=== PATIENT | female | born 2000 | race Caucasian/White ===

== ENCOUNTER 2021-05-29 09:13 | Emergency (ER) | payer OTHER, SELFPAY ==
--- NOTE | ~2021-05-29 | XR_ITS ---
EXAMINATION: XR CHEST CLINICAL INFORMATION: Cough and congestion COMPARISON: Previous chest x-ray August 2018 TECHNIQUE: 2 views of the chest were obtained. FINDINGS: No significant abnormality is noted involving the heart, lungs, mediastinum, bony thorax or soft tissues. XR/XR chest 2V IMPRESSION: Unremarkable examination.
[2021-05-29 10:10] VITALS: BP 112/65; PULSE 68; RESP 18; TEMP 37.1; O2SAT 96; BMI 31.4
--- NOTE | 2021-05-29 11:46 | ED_ITS ---
HPI - URI/Sore Throat General Chief Complaint: Upper Respiratory Symptoms Stated Complaint: severe chest pain, cough Time Seen by Provider: 05/29/21 11:14 Source: patient Mode of arrival: ambulatory History of Present Illness HPI Narrative: 20-year-old female with past medical history of asthma presenting to the ED complaining of productive cough, nasal congestion, chest discomfort when coughing times about a week and a half. Admits seen at urgent care in [facility] prescribed coughing suppressants without relief. denies fever, chills, ear pain, SOB admits tested negative for strep and COVID-19 MD elicited complaint: cough and nasal congestion Related Data Previous Rx's Medication Instructions Recorded azithromycin See Rx Instructions .ROUTE 05/29/21 .COMPLEX #6 tab benzonatate [Tessalon Perles] 100 mg PO TID PRN #14 cap 05/29/21 fluticasone propionate [Flonase 2 spray INTRANASAL DAILY #16 g 05/29/21 Allergy Relief] Allergies Allergy/AdvReac Type Severity Reaction Status Date / Time No Known Allergies Allergy Verified 05/29/21 10:13 [No Known Allergies*] Review of Systems Review of Systems: Constitutional: No Fever, No Chills ENT/Mouth: No Ear Pain, + Nasal Congestion, No Sinus Pain, No Hoarseness, No sore throat, + Rhinorrhea, No Swallowing Difficulty Cardiovascular: + Chest Pain when coughing, No SOB Respiratory: + Cough, No Sputum, + Wheezing Gastrointestinal: No Nausea, No Vomiting, No Abdominal pain Musculoskeletal: No joint pain, No Myalgias Skin: No Skin Lesions, No rash Yes all other systems are reviewed and are negative [facility] Past Medical History Attestation statement: The following information was validated with the patient. Medical History (Updated 05/29/21 @ 11:47 by RONI Lopez) No known health problems Social History Social History Advance Directives: No Advance Directives Information Provided: No Patient : No Physical Exam Vital Signs: Vital Signs: Last Vital Signs Temp 98.8 F 05/29/21 10:10 Pulse 68 05/29/21 10:10 Resp 18 05/29/21 10:10 BP 112/65 05/29/21 10:10 Pulse Ox 96 05/29/21 10:10 Body Mass Index 31.4 Const: General: cooperative, healthy appearing and no acute distress Orientation/consciousness: patient oriented x3 Limitations: no limitations HENMT: Head: Yes normal to inspection Ears: hearing grossly normal bilaterally General nose exam: Normal external nose present Face and sinus: Yes normal facial exam Eyes: General: appearance normal, both eyes and all related structures EOM: EOMs intact bilaterally Neck: Neck: Yes normal visual inspection, Yes no lymphadenopathy and Yes no meningeal signs Resp: Effort & Inspection: normal respiratory effort Auscultation: clear to auscultation bilaterally, no rales, no rhonchi and no wheezes Cardio: Rate: regular rate Heart sounds: S1 normal heart sound present and S2 normal heart sound present Skin: Rashes: no rashes Wounds: no wounds Neuro: General: patient oriented x3 and no meningeal signs Gait exam (Neuro): Normal gait present Extrem: General: Yes normal to inspection Course Course Course Narrative: - CXR unremarkable MDM - URI/Sore Throat MDM Narrative Medical decision making narrative: 20-year-old female with past medical history of asthma presenting to the ED complaining of productive cough, nasal congestion, chest discomfort when coughing times about a week and a half. on exam VSS, NAD, lungs CTA, nontoxic appearing, rule out pneumonia vs bronchitis vs viral syndrome. Low concern for ACS /PE plan: CXR Medical Records Attestation: I reviewed the patient's medical records. Discharge Plan Discharge Clinical Impression: Upper respiratory infection, Bronchitis Patient Disposition: Home, Self-Care Instructions: Acute Bronchitis (ED) Additional Instructions: your x-ray was unremarkable. Is a throw my symptoms antibiotic, take as prescribed Tessalon Perles are for cough Flonase is an allergy relief medication Follow-up with her primary care doctor If her symptoms persist or worsen, become unbearable please return to the ED Prescriptions: New azithromycin 250 mg tablet See Rx Instructions .ROUTE .COMPLEX Qty: 6 RF: 0 benzonatate [Tessalon Perles] 100 mg capsule 100 mg PO TID PRN (Reason: cough) Qty: 14 RF: 0 fluticasone propionate [Flonase Allergy Relief] 50 mcg/actuation spray,suspension 2 spray intranasal DAILY Qty: 16 RF: 0 Referrals: Physician,Unknown [Primary Care Provider] - 2 days
== END 2021-05-29 12:02 | disposition home or self-care (01) ==
PROVIDERS: Emergency Provider Emergency Medicine Emergency Medical Services
DX: J06.9 Acute upper respiratory infection, unspecified (principal); J40 Bronchitis, not specified as acute or chronic; J45.909 Unspecified asthma, uncomplicated
CPT/HCPCS: 71046; 99283

== ENCOUNTER 2022-01-21 17:11 | Emergency (ER) | payer OTHER, SELFPAY ==
[2022-01-21 19:20] VITALS: BP 119/55; PULSE 70; RESP 18; TEMP 36.9; O2SAT 100; BMI 26.6
[2022-01-21] MEDS: Ondansetron ODT 4 MG TAB.RAPDIS TRANSLINGU (19:27)
[2022-01-21 20:23] LABS: Appearance Urine CLEAR; Color Urine YELLOW; Glucose Urine UA NEG (NEG); Leukocyte Esterase Urine NEG (NEG); Nitrite Urine NEG (NEG); PH 8.5 (5.0-8.0); Urine Blood NEG (NEG); Urine Ketones 5 MG/DL (NEG); Urine Protein TRACE MG/DL (NEG-TRACE)
[2022-01-21 20:25] LABS: Basophils Percent Auto 0.1 % (0-2); Eosinophils Percent Auto 0.1 % (0-4); Hematocrit 41.4 % (37.0-47.0); Imm Gran Abs Auto 0.03 X10*3/uL (0.00-0.03); Imm Gran Pct Auto 0.3 % (0.0-0.4); Lymphocytes Absolute Auto 0.5 X10*3/uL (1.2-4.9); Lymphocytes Percent Auto 4.7 % (20-40); MANUAL DIFF FLAG NO; Mean Corpuscular HGB Conc 33.8 g/dl (31.0-35.0); Mean Corpuscular Hemoglobin 30.8 pg (27.0-33.0); Mean Platelet Volume 10.8 fL (9.4-12.3); Monocytes Absolute Auto 0.4 X10*3/uL (0.1-1.2); Monocytes Percent Auto 3.9 % (2-11); Neutrophils Percent Auto 90.9 % (45-73); Platelet Count 287 X10*3/uL (160-400); Red Blood Count 4.55 X10*6/uL (4.20-5.50); Red Cell Distribution Width 13.2 % (11.0-16.0); SCAN SMEAR FLAG 1; White Blood Count 10.9 X10*3/uL (4.8-10.8)
[2022-01-21 20:30] LABS: UPreg QC Valid YES; Urine Pregnancy NEGATIVE (NEGATIVE)
[2022-01-21 20:56] LABS: Alanine Aminotransferase 23 U/L (0-31); Albumin Level 4.4 g/dL (3.5-5.0); Alkaline Phosphatase 45 U/L (39-117); Anion Gap 11 (12-20); Aspartate Amino Transferase 19 U/L (5-31); Blood Urea Nitrogen 13 mg/dL (9-16); Calcium 9.5 mg/dL (8.4-10.2); Carbon Dioxide 28 mmol/L (22-29); Chloride 104 mmol/L (96-108); Creatinine Clr Calc Pharmacy 130.3; Estimated Glomerular Filt Rate > 60; Glucose Random 91 mg/dL (60-115); Potassium 3.9 mmol/L (3.3-5.1); Sodium 139 mmol/L (135-145); Total Protein 7.3 g/dL (6.5-8.0)
--- NOTE | 2022-01-21 23:07 | ED_ITS ---
HPI - Abdominal Pain General Chief Complaint: Abdominal Pain Stated Complaint: abd pain/ vomiting Time Seen by Provider: 01/21/22 23:07 Source: patient Mode of arrival: ambulatory Limitations: no limitations History of Present Illness HPI narrative: Patient smokes marijuana with history of H pylori gastritis complaining of nausea vomiting and diarrhea for last 3 - 4 days with diffuse abdominal cramps 4- 5 times vomiting and diarrhea no fever no blood in the stool patient was given Zofran while in the triage slept feeling much better now taking p.o. fluids patient claims that she has Crohn disease but no colonoscopy was done in previous CT scan was negative patient status post cholecystectomy patient has been here multiple times for similar reasons denies cannabis as a cause Related Data Previous Rx's Medication Instructions Recorded azithromycin 250 mg tablet See Rx Instructions .ROUTE 05/29/21 .COMPLEX #6 tab benzonatate 100 mg capsule 100 mg PO TID PRN #14 cap 05/29/21 (Tessaldaniel Zeng) fluticasone propionate 50 2 spray INTRANASAL DAILY #16 g 05/29/21 mcg/actuation nasal spray,suspension (Flonase Allergy Relief) dicyclomine 20 mg tablet 20 mg PO QID PRN #14 tab 01/21/22 ondansetron 4 mg disintegrating 4 mg PO Q6-8H PRN #7 tab 01/21/22 tablet Allergies Allergy/AdvReac Type Severity Reaction Status Date / Time No Known Allergies Allergy Verified 01/21/22 19:20 [No Known Allergies*] Review of Systems Review of Systems Yes all other systems are reviewed and are negative PENDING SALE TO [facility] Past Medical History Medical History (Updated 01/22/22 @ 00:01 by Katiuska Farris) Crohn's disease Stomach ulcer Surgical History (Updated 01/21/22 @ 19:25 by Sandi Fraser RN) S/P cholecystectomy Social History Social History Advance Directives: No Patient : No Physical Exam ED Vital Signs: Vital Signs - 24 hr 01/21/22 19:20 Temperature 98.4 F Pulse Rate 70 Respiratory Rate 18 Blood Pressure 119/55 L Pulse Oximetry 100 BMI result Body Mass Index 26.6 Appearance: Alert. Oriented X3. No acute distress. Eyes: No pallor/ icterus ENT: Pharynx normal. Oral Mucosa moist Neck: Normal inspection. Neck supple. CVS: Normal heart rate and rhythm. Pulses normal. Respiratory: No respiratory distress. Equal air entry bilateral, no wheezing/rales/rhonchi Abdomen: Soft and nontender. No guarding or rebound tenderness Bowel sounds are present, no mass palpable, no CVA tenderness Skin: Skin warm and dry. Normal skin color. Normal skin turgor. Extremities: No lower extremity edema. No calf tenderness Neuro: Oriented X 3. 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 Result diagrams: 01/21/22 20:06 01/21/22 20:06 Labs: Lab Results 01/21/22 01/21/22 01/21/22 Range/Units 20:06 20:06 20:06 WBC 10.9 H (4.8-10.8) X10*3/uL RBC 4.55 (4.20-5.50) X10*6/uL Hgb 14.0 (12.0-16.0) g/dl Hct 41.4 (37.0-47.0) % MCV 91.0 (80.0-98.0) fL MCH 30.8 (27.0-33.0) pg MCHC 33.8 (31.0-35.0) g/dl RDW 13.2 (11.0-16.0) % Plt Count 287 (160-400) X10*3/uL MPV 10.8 (9.4-12.3) fL Immature Gran % (Auto) 0.3 (0.0-0.4) % Neut % (Auto) 90.9 H (45-73) % Lymph % (Auto) 4.7 L (20-40) % Walsh % (Auto) 3.9 (2-11) % Eos % (Auto) 0.1 (0-4) % Baso % (Auto) 0.1 (0-2) % Lymph # (Auto) 0.5 L (1.2-4.9) X10*3/uL Walsh # (Auto) 0.4 (0.1-1.2) X10*3/uL Eos # (Auto) 0.0 (0.0-0.4) X10*3/uL Baso # (Auto) 0.0 (0.0-0.2) X10*3/uL Abs Immat Gran (auto) 0.03 (0.00-0.03) X10*3/uL Absolute Neuts (auto) 10.0 H (2.0-8.3) x10*3/uL Absolute Nucleated RBC 0.000 (0.0-0.012) X10*3/uL Nucleated RBC % (auto) 0.0 (0.0-0.2) /100WBC Sodium 139 (135-145) mmol/L Potassium 3.9 (3.3-5.1) mmol/L Chloride 104 (96-108) mmol/L Carbon Dioxide 28 (22-29) mmol/L Anion Gap 11 L (12-20) BUN 13 (9-16) mg/dL Creatinine 0.70 (0.5-1.4) mg/dL Estim Creat Clear Calc 130.3 Estimated GFR > 60 Random Glucose 91 (60-115) mg/dL Calcium 9.5 (8.4-10.2) mg/dL Total Bilirubin 1.0 (0.0-1.0) mg/dL AST 19 (5-31) U/L ALT 23 (0-31) U/L Alkaline Phosphatase 45 (39-117) U/L Total Protein 7.3 (6.5-8.0) g/dL Albumin 4.4 (3.5-5.0) g/dL Urine Color Urine Appearance Urine pH (5.0-8.0) Ur Specific [place] (1.005-1.025) Urine Protein (NEG-TRACE) MG/DL Urine Glucose (UA) (NEG) MG/DL Urine Ketones (NEG) MG/DL Urine Blood (NEG) Urine Nitrite (NEG) Ur Leukocyte Esterase (NEG) Urine Test NEGATIVE (NEGATIVE) 01/21/22 Range/Units 20:06 WBC (4.8-10.8) X10*3/uL RBC (4.20-5.50) X10*6/uL Hgb (12.0-16.0) g/dl Hct (37.0-47.0) % MCV (80.0-98.0) fL MCH (27.0-33.0) pg MCHC (31.0-35.0) g/dl RDW (11.0-16.0) % Plt Count (160-400) X10*3/uL MPV (9.4-12.3) fL Immature Gran % (Auto) (0.0-0.4) % Neut % (Auto) (45-73) % Lymph % (Auto) (20-40) % Walsh % (Auto) (2-11) % Eos % (Auto) (0-4) % Baso % (Auto) (0-2) % Lymph # (Auto) (1.2-4.9) X10*3/uL Walsh # (Auto) (0.1-1.2) X10*3/uL Eos # (Auto) (0.0-0.4) X10*3/uL Baso # (Auto) (0.0-0.2) X10*3/uL Abs Immat Gran (auto) (0.00-0.03) X10*3/uL Absolute Neuts (auto) (2.0-8.3) x10*3/uL Absolute Nucleated RBC (0.0-0.012) X10*3/uL Nucleated RBC % (auto) (0.0-0.2) /100WBC Sodium (135-145) mmol/L Potassium (3.3-5.1) mmol/L Chloride (96-108) mmol/L Carbon Dioxide (22-29) mmol/L Anion Gap (12-20) BUN (9-16) mg/dL Creatinine (0.5-1.4) mg/dL Estim Creat Clear Calc Estimated GFR Random Glucose (60-115) mg/dL Calcium (8.4-10.2) mg/dL Total Bilirubin (0.0-1.0) mg/dL AST (5-31) U/L ALT (0-31) U/L Alkaline Phosphatase (39-117) U/L Total Protein (6.5-8.0) g/dL Albumin (3.5-5.0) g/dL Urine Color YELLOW Urine Appearance CLEAR Urine pH 8.5 H (5.0-8.0) Ur Specific [place] 1.020 (1.005-1.025) Urine Protein TRACE (NEG-TRACE) MG/DL Urine Glucose (UA) NEG (NEG) MG/DL Urine Ketones 5 (NEG) MG/DL Urine Blood NEG (NEG) Urine Nitrite NEG (NEG) Ur Leukocyte Esterase NEG (NEG) Urine Test (NEGATIVE) Discharge Plan Discharge Clinical Impression: Gastroenteritis Patient Disposition: Home, Self-Care Instructions: Gastroenteritis (ED) Additional Instructions: Drink plenty of fluids Medication for nausea and abdominal spasm Follow-up with PCP Prescriptions: New dicyclomine 20 mg tablet 20 mg PO QID PRN (Reason: abdominal pain) Qty: 14 0RF ondansetron 4 mg tablet,disintegrating 4 mg PO Q6-8H PRN (Reason: nausea and vomiting) Qty: 7 0RF No Action azithromycin 250 mg tablet See Rx Instructions .ROUTE .COMPLEX Qty: 6 0RF Rx Instructions: take 500 mg today (day 1), then 250 mg for 4 days (days 2-5) benzonatate [Tessalon Perles] 100 mg capsule 100 mg PO TID PRN (Reason: cough) Qty: 14 0RF fluticasone propionate [Flonase Allergy Relief] 50 mcg/actuation spray,suspension 2 spray intranasal DAILY Qty: 16 0RF Rx Instructions: administer into each nostril Interventions: ED Discharge Assessment Last Done: 01/21/22 23:38 Discharge Date/Time: 01/21/22 23:38
[2022-01-21] MEDS: Dicyclomine HCl 10 MG CAPSULE 20 MG PO (23:37)
== END 2022-01-21 23:38 | disposition home or self-care (01) ==
PROVIDERS: Emergency Provider Internal Medicine
DX: K52.9 Noninfective gastroenteritis and colitis, unspecified (principal); Z79.899 Other long term (current) drug therapy
CPT/HCPCS: 36415; 80053; 81003; 81025; 85025; 99283

== ENCOUNTER 2022-06-12 10:16 | Emergency (ER) | payer OTHER, SELFPAY ==
--- NOTE | ~2022-06-12 | CT_ITS ---
EXAMINATION: CT HEAD WITHOUT CONTRAST CLINICAL INFORMATION: Fall. Head injury. COMPARISON: None TECHNIQUE: Contiguous axial imaging was performed from the skull base to vertex without intravenous administration of contrast. This CT examination was performed using dose optimization techniques as appropriate, variously including the following: *Automated exposure control *Adjustment of mA and/or kV according to patient size (this includes techniques or standardized protocols for targeted exams where dose is matched to indication/reason for exam; i.e. extremities or head) *Use of iterative reconstruction technique DLP: 620 mGy-cm FINDINGS: There is no evidence of acute intracranial hemorrhage or territorial infarction. No abnormal mass effect or midline shift is seen. Robbins to white matter differentiation is well preserved. No extra-axial fluid collections are identified. The ventricles are normal in size. There is no abnormal attenuation within the brain parenchyma. There is no skull fracture. There is soft tissue swelling over the posterior midline parietal bones probably representing a small hematoma. The mastoid air cells and visualized portions of the paranasal sinuses are well aerated. CT/CT head/brain wo con IMPRESSION: No acute intracranial findings. Probable small soft tissue hematoma over the posterior midline parietal bones.
--- NOTE | ~2022-06-12 | CT_ITS ---
EXAMINATION: CT CERVICAL SPINE WITHOUT CONTRAST CLINICAL INFORMATION: Fall. Neck pain. COMPARISON: None TECHNIQUE: Axial images through the cervical spine without contrast. Sagittal and coronal reconstructions on the technologist workstation were performed. This CT examination was performed using dose optimization techniques as appropriate, variously including the following: *Automated exposure control *Adjustment of mA and/or kV according to patient size (this includes techniques or standardized protocols for targeted exams where dose is matched to indication/reason for exam; i.e. extremities or head) *Use of iterative reconstruction technique DLP: 424 mGy-cm FINDINGS: Bone alignment is normal. No fracture or dislocation is seen. Disc spaces are normal. Prevertebral soft tissues are normal. Lung apices are clear. CT/CT cervical spine wo con IMPRESSION: Unremarkable examination. Fleischner guidelines were followed.
[2022-06-12 10:18] VITALS: BP 100/62; PULSE 88; RESP 18; TEMP 36.5; O2SAT 100; BMI 23.3
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
[2022-06-12 12:30] VITALS: BP 111/58; PULSE 48; RESP 16; O2SAT 98
== END 2022-06-12 13:06 | disposition home or self-care (01) ==
PROVIDERS: Emergency Provider Emergency Medicine
DX: S06.0X0A Concussion without loss of consciousness, initial encounter (principal); S09.90XA Unspecified injury of head, initial encounter; V18.1XXA Pedal cycle passenger injured in noncollision transport accident in nontraffic accident, initial encounter; Y93.55 Activity, bike riding; Y92.414 Local residential or business street as the place of occurrence of the external cause; Y99.9 Unspecified external cause status
CPT/HCPCS: 70450; 72125; 99283; 99284

== ENCOUNTER 2025-01-20 14:34 | Emergency (ER) | payer OTHER, SELFPAY ==
--- OUTSIDE RECORDS SUMMARY | 2025-01-20 16:51 | XMS_ITS | Encounter Summary ---
Author Organization [facility] Address [address] [place] [address] Phone Care Team Providers Care Network Management Specialist Name Role Phone Nicole Thomas MD Primary Care Provider [phone] Reason for Visit * Reason Comments Med Refill Encounter Details Date Type Department Care Team (Late st Contact Info) Description 05/20/2021 Refill [facility] [place] [address] [place] [address] Nicole Thomas MD [address] [place] [address] Dysthymia; Anxiety Social History Tobacco Use Types Packs/Day Years Used Date Smoking Tobacco: Never Smokeless Tobacco: Never Alcohol Use Standard Drinks/Week Comments No 0 (1 standard drink = 0.6 oz pur e alcohol) Hunger/Food Answer Date Recorded In the last 12 months, did y ou or your family ever eat less than you felt you should because there wasn't enough money for food? No 04/13/2020 Stable Housing Answer Date Recorded Are you worried that in the next 2 months you may not have stable housing? No 04/13/2020 Transportation Concerns Answer Date Rec orded In the last 12 months, have you or your family ever had to go without healthcare because you didn't have a way to get there? No 04/13/2020 Hazards in Home Answer Date Recorded Think about the place you li ve. Do you have problems with any of the following? Pests (mice or roaches), mold, no/not working smoke detectors, water leaks, no window guards. No 2019 Financing Utilities Answer Date Recorde d In the last 12 months, has t he electric, gas, oil, or water company threatened to shut off your services in your home? No 04/13/2020 Safety at Home Answer Date Recorded Are you or your family worried about feeling saf e in your home? No 04/13/2020 Outside Support Answer Date Recorded Do you feel that you need mo re support from other people or programs to help you care for yourself or your family? No 04/13/2020 Understanding Health Concerns Answer Da te Recorded Do you need help understandi ng your or your child's healthcare needs (diagnosis, medications, plan, etc.)? No 04/13/2020 Financing Health Concerns Answer Date R ecorded In the last 12 months, was t here a time when your child needed to see a doctor or get medications or supplies but could not because of cost? No 04/13/2020 Missing School or Work Answer Date Javon rded Did you or your child miss s chool or work because of a health problem that could have been avoided? No 04/13/2020 Comments No Sex and Gender Information Value Date Recorded Sex Assigned at Female 08/16/2022 10:07 AM EDT Legal Sex Female 3:18 PM EDT Gender Identity Female 03/26/2021 2:29 PM EDT Sexual Orientation Straight 08/16/2022 10 :08 AM EDT documented as of this encounter Plan of Treatment Not on file documented as of this encounter Visit Diagnoses Diagnosis Dysthymia Dysthymic disorder Anxiety Anxiety state, unspecified documented in this encounter Care Teams Network Management Specialist Relationship Specialty Start Date End Date Nicole Thomas MD [address] [place] [id number] PCP - General Pediatrics 02/24/20 10/28/23 documented as of this encounter
--- OUTSIDE RECORDS SUMMARY | 2025-01-20 16:51 | XMS_ITS | Encounter Summary ---
Author Organization [facility] Address [address] [place] [address] Phone Care Team Providers Care Water Sander Name Role Phone Nicole Thomas MD Primary Care Provider [phone] Reason for Visit * Reason Comments Med Refill Encounter Details Date Type Department Care Team (Late st Contact Info) Description 12/22/2020 Refill [facility] - [place] [address] [place] [address] Nicole Thomas MD [address] [place] [address] History of asthma Social History Tobacco Use Types Packs/Day Years [...] as of this encounter Visit Diagnoses Diagnosis History of asthma Personal history of other diseases of respiratory system documented in this encounter Care Teams Water Sander Relationship Specialty Start Date End Date Nicole Thoams MD [address] [place] [id number] PCP - General Pediatrics 02/24/20 10/28/23 documented as of this encounter
--- OUTSIDE RECORDS SUMMARY | 2025-01-20 16:51 | XMS_ITS | Encounter Summary ---
Author Organization [facility] Address [address] [place] [address] Phone Care Team Providers Care Violin Mechanic Name Role Phone Nicole Thomas MD Primary Care Provider [phone] Reason for Visit * Reason Comments Med Refill Encounter Details Date Type Department Care Team (Late st Contact Info) Description 12/19/2021 Refill [facility] - [place] [address] [place] [address] Nicole Thomas MD [address] [place] [address] Dysthymia; Anxiety Social History Tobacco Use Types [...] unspecified documented in this encounter Care Teams Violin Mechanic Relationship Specialty Start Date End Date Nicole Thomas MD [address] [place] [id number] PCP - General Pediatrics 02/24/20 10/28/23 documented as of this encounter
--- OUTSIDE RECORDS SUMMARY | 2025-01-20 16:51 | XMS_ITS | Encounter Summary ---
Author Organization [facility] Address [address] [place] [address] Phone Care Team Providers Care Conversion Developer Name Role Phone Nicole Thomas MD Primary Care Provider [phone] Encounter Details Date Type Department Care Team (Late st Contact Info) Description 09/20/2019 Conversion Encounter [facility] [address] [place] [address] Arsen Whitley MD [address] [place] [address] Social History Tobacco Use Types Packs/Day Years Used Date Smoking Tobacco: Never Assessed Hunger/Food Answer Date Recorded No 03/01/2019 Stable Housing Answer Date Recorded 0 03/01/2019 Transportation Concerns Answer Date Rec orded No 03/01/2019 Hazards in Home Answer Date Recorded No 03/01/2019 Financing Utilities Answer Date Recorde d No 03/01/2019 Safety at Home Answer Date Recorded No 03/01/2019 Outside Support Answer Date Recorded No 03/01/2019 Understanding Health Concerns Answer Da te Recorded No 03/01/2019 Financing Health Concerns Answer Date R ecorded No 03/01/2019 Missing School or Work Answer Date Javon rded No 03/01/2019 Comments Unknown Sex and Gender Information Value Date Recorded Sex Assigned at Female 08/16/2022 10:07 AM EDT Legal Sex Female 3:18 PM EDT Gender Identity Female 03/26/2021 2:29 PM EDT Sexual Orientation Straight 08/16/2022 10 :08 AM EDT documented as of this encounter Plan of Treatment Not on file documented as of this encounter Visit Diagnoses Not on filedocumented in this encounter Care Teams Conversion Developer Relationship Specialty Start Date End Date Nicole Thomas MD [address] [place] [address] PCP - General Pediatrics 02/24/20 10/28/23 documented as of this encounter
--- OUTSIDE RECORDS SUMMARY | 2025-01-20 16:51 | XMS_ITS | Encounter Summary ---
Author Organization [facility] Address [address] [place] [address] Phone Care Team Providers Care Regional Business Development Manager Name Role Phone Nicole Thomas MD Primary Care Provider [phone] Reason for Visit * Reason Comments Med Refill Encounter Details Date Type Department Care Team (Late st Contact Info) Description 03/25/2022 Refill [facility] - [place] [address] [place] [address] Nicole Thomas MD [address] [place] [address] Dysthymia; Anxiety Social History Tobacco Use Types [...] AM EDT documented as of this encounter Miscellaneous Notes * Telephone Encounter - Sylvia Quintero - 04/19/2022 9:17 AM EDT 3 calls no response, sent a postcard FYI to MARC * Telephone Encounter - Sylvia Quintero - 04/11/2022 9:51 AM EDT Left message to call back and schedule appointment and sent a text message * Telephone Encounter - Sylvia Quintero - 04/03/2022 9:45 AM EDT Left message to call back and schedule appointment. * Telephone Encounter - Sylvia Quintero - 03/26/2022 9:58 AM EDT Left message to call back and schedule appointment and sent a portal message * Telephone Encounter - Nicole Thomas MD - 03/26/2022 8:06 AM EDT Patient due for med check, please call to scheduled documented in this encounter Plan of Treatment Not on file documented as of this encounter Visit Diagnoses Diagnosis Dysthymia Dysthymic disorder Anxiety Anxiety state, unspecified documented in this encounter Care Teams Regional Business Development Manager Relationship Specialty Start Date End Date Nicole Thomas MD [address] [place] [address] PCP - General Pediatrics 02/24/20 10/28/23 documented as of this encounter
--- OUTSIDE RECORDS SUMMARY | 2025-01-20 16:51 | XMS_ITS | Data Portability ---
Author Organization [facility], [address] Address [address] [place] [address] Assessment No assessment recorded. Plan of Treatment Reminders Order Date Submit Date Provider Last Modified By Organization Details Last Modified Time Details Appointments None recorded. Lab urinalysis, dipstick 2023 024 [email or web address] 247 [id number], [address] [place], [address], 4 09:09:11 test, urine 2023 024 [email or web address] 247 [id number], [address] [place], [address], 4 09:09:13 culture, urine 2023 024 [place] [facility] [address] [place], [address], 4 06:07:57 chlamydia trachomatis + neisseria gonorrhoeae + trichomonas vaginalis DNA panel, VALERIY+probe, unspecified specimen 2023 024 [place] [facility] [address] [place], [address], 4 16:06:09 bacterial vaginosis + vaginitis panel, vaginal 2022 023 [place] [facility] [address] [place], [address], 3 12:06:30 urinalysis, dipstick 2022 023 [email or web address] [address] [address], [address] [place], [address], 3 12:08:08 test, urine 2022 023 [email or web address] [facility] [address], [address] [place], [address], 3 12:08:09 culture, urine 2022 023 [facility]), [address] [place] [address], [address], 3 06:07:35 urinalysis, dipstick 2022 023 [place] [address] [address], [address] [place] [address], [address], 3 14:17:28 test, urine 2022 023 [place] [address] [facility], [address] [place] [address], [address], 3 14:17:28 vaginal pathogens panel, VALERIY+probe, vaginal fluid 2022 023 [facility]), [address] [place] [address], [address], 3 06:07:49 Referral None recorded. Procedures None recorded. Surgeries None recorded. Imaging None recorded. Medication Orders nitrofurant oin monohydrate /macrocryst als 100 mg capsule 2022 023 [email or web address] 31 [id number], [address] [facility], [place], [address], 4 08:43:49 Polytrim 10,000 unit-1 mg/mL eye drops 2022 023 [id number], [address] [place], [place], [id number], 3 11:59:18 Metrogel Vaginal 0.75 % (37.5 mg/5 gram) 2022 023 [id number], [address] [place], [place], [id number], 3 08:53:43 Patient TargetsNo targets recorded. Patient Instructions Encounter Date Encounter Id Patient Instructions Last Modified By Organization Details Last Modified Time 04/02/2023 [id number] bacterial vaginosis: care instructions Not available 04/02/2023 14:18:10 safer sex: care instructions Not available 04/02/2023 14:18:25 06/10/2023 [id number] pinkeye: care instructions [email or web address] Not available 06/10/2023 10:34:54 Use the eye drop s as prescribed. Stop using the over the counter eye drops you purchased. An over the counter antihistamine such as claritin or zyrtec can be taken per package instructions for itching or allergy symptoms. See printed instructions and work note. Follow-up with your doctor if no improvement in a few days. Seek Emergency Medical evaluation for any worsening symptoms. Not available 06/10/2023 10:36:42 03/04/2024 [id number] [facility]: [email or web address] ? ? ? [place], [place] ? ? ? [place], [place] ? ? ? [email or web address] Not available 03/04/2024 09:09:20 Reason for Referral None Reported. Results Created Date Observation Date Name Description Value Unit Range Abnormal Flag Note LastModifiedBy Organization Detail LastModifiedTime 04/02/20 23 04/03/2023 NUSWA B VAGIN ITIS PLUS (VG+) atopobium vaginae HIGH - 2 score abnormal Not Available [facility] ([facility]) [address] [facility], [place], [address], 04/10/2023 06:07:49 04/02/20 23 04/03/2023 NUSWA B VAGIN ITIS PLUS (VG+) bvab 2 HIGH - 2 score abnormal Not Available [facility] ([facility]) [address] [facility], [place], [address], 04/10/2023 06:07:49 04/02/20 23 04/03/2023 NUA B VAGIN ITIS PLUS (VG+) megasphaera 1 HIGH - 2 score abnormal Calcu late total score by giuliano g the 3 indiv idual bacte rial vagin osis (BV) marke r score s toget her. Total score is inter prete d as follo ws: Total score 0-1: Indic ates the absen ce of BV. Total score 2: Indet ermin ate for BV. Addit ional clini cheyanne data shoul d be evalu ated to estab tad a diagn osis. Total score 3-6: Indic ates the prese nce of BV. This test was devel oped and its perfo rmanc e rupesh cteri stics deter mined by [facility]. It has not been clear ed or appro natanael by the Food and Drug Admin istra tion. Not Available [facility] ([facility]) [address] [facility], [place], [address], 04/10/2023 06:07:49 04/02/2004/03/2023 NUA B VAGIN ITIS PLUS (VG+) harpreet albicans, VALERIY NEGATI VE negati ve Not Available [facility] ([facility]) [address] [facility], [place], [address], 04/10/2023 06:07:49 04/02/2004/03/2023 NUA B VAGIN ITIS PLUS (VG+) harpreet glabrata, VALERIY NEGATI VE negati ve Not Available [facility] ([facility]) [address] [facility], [place], [address], 04/10/2023 06:07:49 04/02/20 23 04/05/2023 NUA B VAGIN ITIS PLUS (VG+) trich vag by VALERIY NEGATI VE negati ve Not Available [facility] ([facility]) [address] [facility], [place], [address], 04/10/2023 06:07:49 04/02/20 23 04/09/2023 NUA B VAGIN ITIS PLUS (VG+) chlamydia trachomatis, VALERIY NEGATI VE negati ve Not Available [facility] ([facility]) [address] [facility], [place], [address], 04/10/2023 06:07:49 04/02/20 23 04/09/2023 NUA B VAGIN ITIS PLUS (VG+) neisseria gonorrhoeae, VALERIY NEGATI VE negati ve Not Available [facility] ([facility]) [address] [facility], [place], [address], 04/10/2023 06:07:49 04/02/20 23 04/02/2023 pregn julisa test, urine Unknown Analyte Normal = Negati ve Not Available [address], [address], 04/02/2023 13:55:06 04/02/20 23 04/02/2023 pregn julisa test, urine Unknown Analyte negati ve Not Available [address], [address], 04/02/2023 13:55:06 04/02/20 23 04/02/2023 urina lysis , dipst ick Unknown Analyte Morenita Not Available [address], [address], 04/02/2023 13:43:01 04/02/20 23 04/02/2023 urina lysis , dipst ick Unknown Analyte Normal = light yellow Not Available [address]la[address] mooney [address], [place], [address], 04/02/2023 13:43:01 04/02/20 23 04/02/2023 urina lysis , dipst ick Unknown Analyte Normal = clear Not Available laith mooney [address], [place], [address], 04/02/2023 13:43:01 04/02/20 23 04/02/2023 urina lysis , dipst ick Unknown Analyte Cloudy Not Available [facility] [address], [place], [place], [address], 04/02/2023 13:43:01 04/02/20 23 04/02/2023 urina lysis , dipst ick Unknown Analyte Negati ve Not Available laith mooney [address], [place], [address], 04/02/2023 13:43:01 04/02/20 23 04/02/2023 urina lysis , dipst ick Unknown Analyte Normal = negati ve Not Available laith mooney [address], [place], [address], 04/02/2023 13:43:01 04/02/20 23 04/02/2023 urina lysis , dipst ick Unknown Analyte Normal = Negati ve Not Available laith mooney [address], [place], [address], 04/02/2023 13:43:01 04/02/20 23 04/02/2023 urina lysis , dipst ick Unknown Analyte Negati ve Not Available laith mooney [address], [place], [address], 04/02/2023 13:43:01 04/02/20 23 04/02/2023 urina lysis , dipst ick Unknown Analyte Normal = Negati ve Not Available laith mooney [address], [place], [address], 04/02/2023 13:43:01 04/02/20 23 04/02/2023 urina lysis , dipst ick Unknown Analyte Negati ve Not Available [address], [place], [address], 04/02/2023 13:43:01 04/02/20 23 04/02/2023 urina lysis , dipst ick Unknown Analyte Normal = 1.010, 1.015, 1.020 Not Available [address], [place], [address], 04/02/2023 13:43:01 04/02/20 23 04/02/2023 urina lysis , dipst ick Unknown Analyte 1.020 Not Available [address], [place], [address], 04/02/2023 13:43:01 04/02/20 23 04/02/2023 urina lysis , dipst ick Unknown Analyte Normal = Negati ve Not Available [address], [place], [address], 04/02/2023 13:43:01 04/02/20 23 04/02/2023 urina lysis , dipst ick Unknown Analyte Negati ve Not Available [address], [place], [address], 04/02/2023 13:43:01 04/02/20 23 04/02/2023 urina lysis , dipst ick Unknown Analyte Normal = 6.5, 7.0, 7.5, 8.0 Not Available [facility] [address], [place], [address], 04/02/2023 13:43:01 04/02/20 23 04/02/2023 urina lysis , dipst ick Unknown Analyte 7.0 Not Available [address] [place] [address], [place], [address], 04/02/2023 13:43:01 04/02/20 23 04/02/2023 urina lysis , dipst ick Unknown Analyte Normal = Negati ve Not Available [address] [place] [address], [place], [address], 04/02/2023 13:43:01 04/02/20 23 04/02/2023 urina lysis , dipst ick Unknown Analyte Trace Not Available [address] [place] [address], [place], [address], 04/02/2023 13:43:01 04/02/20 23 04/02/2023 urina lysis , dipst ick Unknown Analyte Normal = 0.2, 1.0 Not Available [address] [place] [address], [place], [address], 04/02/2023 13:43:01 04/02/20 23 04/02/2023 urina lysis , dipst ick Unknown Analyte 0.2 E.U./d L Not Available [address] [place] [address], [place], [address], 04/02/2023 13:43:01 04/02/20 23 04/02/2023 urina lysis , dipst ick Unknown Analyte Normal = Negati ve Not Available [address] [place] [address], [place], [address], 04/02/2023 13:43:01 04/02/20 23 04/02/2023 urina lysis , dipst ick Unknown Analyte Negati ve Not Available [address] [place] [address], [place], [address], 04/02/2023 13:43:01 04/02/20 23 04/02/2023 urina lysis , dipst ick Unknown Analyte Normal = Negati ve Not Available [address] [place] [address], [place], [address], 04/02/2023 13:43:01 04/02/20 23 04/02/2023 urina lysis , dipst ick Unknown Analyte Negati ve Not Available [address] [place] [address], [place], [address], 04/02/2023 13:43:01 08/07/20 23 08/09/2023 URINE CULTU RE, MAMTAI NE urine culture, routine FINAL REPORT Not Available [facility] ([facility]) [address] [place], [address], 08/09/2023 06:07:35 08/07/20 23 08/09/2023 URINE CULTU RE, MAMTAI NE result 1 NO GROWTH Not Available [facility] ([facility]) [address] [place], [address], 08/09/2023 06:07:35 08/07/20 23 08/08/2023 NUSWA B BV VALERIY+C AND6+ CT/GC /T... atopobium vaginae LOW - 0 score Not Available [facility] ([facility]) [address] [place], [address], 08/15/2023 12:06:30 08/07/20 23 08/08/2023 NUSWA B BV VALERIY+C AND6+ CT/GC /T... bvab 2 LOW - 0 score Not Available [facility] ([facility]) [address] [place], [address], 08/15/2023 12:06:30 08/07/20 23 08/08/2023 NUSWA B BV VALERIY+C AND6+ CT/GC /T... megasphaera 1 LOW - 0 score Calcu late total score by giuliano stacy the 3 indiv idual bacte rial vagin osis (BV) marke r score s toget her. Total score is inter prete d as follo ws: Total score 0-1: Indic ates the absen ce of BV. Total score 2: Indet ermin ate for BV. Addit ional clini cheyanne data shoul d be evalu ated to estab tad a diagn osis. Total score 3-6: Indic ates the prese nce of BV. This test was devel oped and its perfo rmanc e rupesh cteri stics deter mined by [facility]. It has not been clear ed or appro natanael by the Food and Drug Admin istra tion. Not Available [facility] ([facility]) [address] [place], [address], 08/15/2023 12:06:30 08/07/20 23 08/09/2023 NUA B BV VALERIY+C AND6+ CT/GC /T... harpreet albicans, VALERIY POSITI VE negati ve abnormal Not Available [facility] ([facility]) [address] [place], [address], 08/15/2023 12:06:30 08/07/20 23 08/09/2023 NUSWA B BV VALERIY+C AND6+ CT/GC /T... harpreet glabrata, VALERIY NEGATI VE negati ve Not Available [facility] ([facility]) [address] [place], [address], 08/15/2023 12:06:30 08/07/20 23 08/09/2023 NUSWA B BV VALERIY+C AND6+ CT/GC /T... C parapsilosis /tropicalis NEGATI VE negati ve This assay does not diffe renti ate C. tropi calis and C. parap jimi is. Not Available [facility] ([facility]) [address] [facility], [place], [address], 08/15/2023 12:06:30 08/07/20 23 08/09/2023 NUSWA B BV VALERIY+C AND6+ CT/GC /T... harpreet lusitaniae, VALERIY NEGATI VE negati ve Not Available [facility] ([facility]) [address] [place], [address], 08/15/2023 12:06:30 08/07/20 23 08/09/2023 NUSWA B BV VALERIY+C AND6+ CT/GC /T... harpreet krusei, VALERIY NEGATI VE negati ve Not Available [facility] ([facility]) [address] [place], [address], 08/15/2023 12:06:30 08/07/20 23 08/10/2023 NUSWA B BV VALERIY+C AND6+ CT/GC /T... trich vag by VALERIY NEGATI VE negati ve Not Available [facility] ([facility]) [address] [place], [address], 08/15/2023 12:06:30 08/07/20 23 08/10/2023 NUSWA B BV VALERIY+C AND6+ CT/GC /T... chlamydia trachomatis, VALERIY NEGATI VE negati ve Not Available [facility] ([facility]) [address] [place], [address], 08/15/2023 12:06:30 08/07/20 23 08/10/2023 NUSWA B BV VALERIY+C AND6+ CT/GC /T... neisseria gonorrhoeae, VALERIY NEGATI VE negati ve Not Available [facility] ([facility]) [address] [place], [address], 08/15/2023 12:06:30 08/07/20 23 08/15/2023 NUSWA B BV VALERIY+C AND6+ CT/GC /T... hsv 1 VALERIY NEGATI VE negati ve Not Available [facility] ([facility]) [address] [facility], [place], [address], 08/15/2023 12:06:30 08/07/20 23 08/15/2023 NUSWA B BV VALERIY+C AND6+ CT/GC /T... hsv 2 VALERIY NEGATI VE negati ve Not Available [facility] ([facility]) [address] [facility], [place], [address], 08/15/2023 12:06:30 08/07/20 23 08/07/2023 urina lysis , dipst ick Unknown Analyte Normal = light yellow Not Available [facility] [facility] [place], [address], 08/07/2023 11:49:52 08/07/2008/07/2023 urina lysis , dipst ick Unknown Analyte Yellow Not Available [facility] [address] [place], [address], 08/07/2023 11:49:52 08/07/2008/07/2023 urina lysis , dipst ick Unknown Analyte Normal = clear Not Available [address] [place], [address], 08/07/2023 11:49:52 08/07/2008/07/2023 urina lysis , dipst ick Unknown Analyte Cloudy Not Available [facility] [address] [place], [address], 08/07/2023 11:49:52 08/07/2008/07/2023 urina lysis , dipst ick Unknown Analyte Normal = negati ve Not Available [address] [place], [address], 08/07/2023 11:49:52 08/07/2008/07/2023 urina lysis , dipst ick Unknown Analyte Negati ve Not Available [address] [place], [address], 08/07/2023 11:49:52 08/07/2008/07/2023 urina lysis , dipst ick Unknown Analyte Normal = Negati ve Not Available [address] [place], [address], 08/07/2023 11:49:52 08/07/2008/07/2023 urina lysis , dipst ick Unknown Analyte Negati ve Not Available [address] [place], [address], 08/07/2023 11:49:52 08/07/2008/07/2023 urina lysis , dipst ick Unknown Analyte Normal = Negati ve Not Available [address] [place], [address], 08/07/2023 11:49:52 08/07/2008/07/2023 urina lysis , dipst ick Unknown Analyte Negati ve Not Available [address] [place], [address], 08/07/2023 11:49:52 08/07/2008/07/2023 urina lysis , dipst ick Unknown Analyte Normal = 1.010, 1.015, 1.020 Not Available [address] [place], [address], 08/07/2023 11:49:52 08/07/2008/07/2023 urina lysis , dipst ick Unknown Analyte 1.025 Not Available [facility] [address] [place], [address], 08/07/2023 11:49:52 08/07/2008/07/2023 urina lysis , dipst ick Unknown Analyte Normal = Negati ve Not Available [address] [place], [address], 08/07/2023 11:49:52 08/07/2008/07/2023 urina lysis , dipst ick Unknown Analyte Small Not Available [facility] [address] [place], [address], 08/07/2023 11:49:52 08/07/2008/07/2023 urina lysis , dipst ick Unknown Analyte Normal = 6.5, 7.0, 7.5, 8.0 Not Available [facility] [address] [place], [address], 08/07/2023 11:49:52 08/07/2008/07/2023 urina lysis , dipst ick Unknown Analyte 5.5 Not Available [facility] [address] [place], [address], 08/07/2023 11:49:52 08/07/2008/07/2023 urina lysis , dipst ick Unknown Analyte Normal = Negati ve Not Available [address] [place], [address], 08/07/2023 11:49:52 08/07/2008/07/2023 urina lysis , dipst ick Unknown Analyte Trace Not Available [address] [place], [address], 08/07/2023 11:49:52 08/07/2008/07/2023 urina lysis , dipst ick Unknown Analyte Normal = 0.2, 1.0 Not Available [facility] [address] [place], [address], 08/07/2023 11:49:52 08/07/2008/07/2023 urina lysis , dipst ick Unknown Analyte 0.2 E.U./d L Not Available [facility] [address] [place], [address], 08/07/2023 11:49:52 08/07/2008/07/2023 urina lysis , dipst ick Unknown Analyte Normal = Negati ve Not Available [facility] [address] [place], [address], 08/07/2023 11:49:52 08/07/2008/07/2023 urina lysis , dipst ick Unknown Analyte Negati ve Not Available [facility] [address] [place], [address], 08/07/2023 11:49:52 08/07/2008/07/2023 urina lysis , dipst ick Unknown Analyte Normal = Negati ve Not Available [facility] [address] [place], [address], 08/07/2023 11:49:52 08/07/2008/07/2023 urina lysis , dipst ick Unknown Analyte Small Not Available [facility] [address] [place], [address], 08/07/2023 11:49:52 08/07/2008/07/2023 pregn julisa test, urine Unknown Analyte negati ve Not Available [address] [place], [address], 08/07/2023 11:49:58 03/04/20 24 03/05/2024 URINE CULTU RE, ROUTI NE urine culture, routine FINAL REPORT Not Available [facility] ([facility]) [address] [place], [address], 03/06/2024 06:07:57 03/04/20 24 03/05/2024 URINE CULTU RE, ROUTI NE result 1 NO GROWTH Not Available [facility] ([facility]) [address] [place], [address], 03/06/2024 06:07:57 03/04/20 24 03/06/2024 CT, NG, TRICH VAG BY VALERIY chlamydia by VALERIY NEGATI VE negati ve Not Available [facility] ([facility]) [address] [place], [address], 03/06/2024 16:06:09 03/04/20 24 03/06/2024 CT, NG, TRICH VAG BY VALERIY gonococcus by VALERIY NEGATI VE negati ve Not Available [facility] ([facility]) [address] [place], [address], 03/06/2024 16:06:09 03/04/20 24 03/06/2024 CT, NG, TRICH VAG BY VALERIY trich vag by VALERIY NEGATI VE negati ve Not Available [facility] ([facility]) [address] [place], [address], 03/06/2024 16:06:09 03/04/20 24 03/04/2024 pregn julisa test, urine Unknown Analyte negati ve Not Available [address] [place], [address], 03/04/2024 08:45:07 03/04/20 24 03/04/2024 pregn julisa test, urine Unknown Analyte yes Not Available [address] [place] [address] [address] [place], [address], 03/04/2024 08:45:07 03/04/20 24 03/04/2024 urina lysis , dipst ick Unknown Analyte Normal = light yellow Not Available [address] [place], [address], 03/04/2024 08:44:59 03/04/20 24 03/04/2024 urina lysis , dipst ick Unknown Analyte Normal = clear Not Available [address] [place], [address], 03/04/2024 08:44:59 03/04/20 24 03/04/2024 urina lysis , dipst ick Unknown Analyte Slight ly Cloudy Not Available [address] [place], [address], 03/04/2024 08:44:59 03/04/20 24 03/04/2024 urina lysis , dipst ick Unknown Analyte Dark Yellow Not Available [address] [place], [address], 03/04/2024 08:44:59 03/04/20 24 03/04/2024 urina lysis , dipst ick Unknown Analyte Normal = negati ve Not Available [address] [place], [address], 03/04/2024 08:44:59 03/04/20 24 03/04/2024 urina lysis , dipst ick Unknown Analyte Negati ve Not Available [address] [place], [address], 03/04/2024 08:44:59 03/04/20 24 03/04/2024 urina lysis , dipst ick Unknown Analyte Normal = Negati ve Not Available [facility] [address] [place], [address], 03/04/2024 08:44:59 03/04/20 24 03/04/2024 urina lysis , dipst ick Unknown Analyte Small Not Available [address] [place] [address] [address] [place], [address], 03/04/2024 08:44:59 03/04/20 24 03/04/2024 urina lysis , dipst ick Unknown Analyte Normal = Negati ve Not Available [facility] [address] [address] [place], [address], 03/04/2024 08:44:59 03/04/20 24 03/04/2024 urina lysis , dipst ick Unknown Analyte 15 mg/dL Not Available [address] [place], [address], 03/04/2024 08:44:59 03/04/20 24 03/04/2024 urina lysis , dipst ick Unknown Analyte Normal = 1.010, 1.015, 1.020 Not Available [facility] [place], [address], 03/04/2024 08:44:59 03/04/20 24 03/04/2024 urina lysis , dipst ick Unknown Analyte 1.020 Not Available [address] [place] [address] [address] [place], [address], 03/04/2024 08:44:59 03/04/20 24 03/04/2024 urina lysis , dipst ick Unknown Analyte Normal = Negati ve Not Available [facility] [address] [place], [address], 03/04/2024 08:44:59 03/04/20 24 03/04/2024 urina lysis , dipst ick Unknown Analyte Trace- intact Not Available [address] [place], [address], 03/04/2024 08:44:59 03/04/20 24 03/04/2024 urina lysis , dipst ick Unknown Analyte Normal = 6.5, 7.0, 7.5, 8.0 Not Available [address] [place], [address], 03/04/2024 08:44:59 03/04/20 24 03/04/2024 urina lysis , dipst ick Unknown Analyte 7.5 Not Available [facility] [address] [place], [address], 03/04/2024 08:44:59 03/04/20 24 03/04/2024 urina lysis , dipst ick Unknown Analyte Normal = Negati ve Not Available [address] [place], [address], 03/04/2024 08:44:59 03/04/20 24 03/04/2024 urina lysis , dipst ick Unknown Analyte 30 mg/dL Not Available [address] [place], [address], 03/04/2024 08:44:59 03/04/20 24 03/04/2024 urina lysis , dipst ick Unknown Analyte Normal = 0.2, 1.0 Not Available [address] [place], [address], 03/04/2024 08:44:59 03/04/20 24 03/04/2024 urina lysis , dipst ick Unknown Analyte 2.0 E.U./d L Not Available [address] [place], [address], 03/04/2024 08:44:59 03/04/20 24 03/04/2024 urina lysis , dipst ick Unknown Analyte Normal = Negati ve Not Available [address] [place], [address], 03/04/2024 08:44:59 03/04/20 24 03/04/2024 urina lysis , dipst ick Unknown Analyte Negati ve Not Available [address] [place], [address], 03/04/2024 08:44:59 03/04/20 24 03/04/2024 urina lysis , dipst ick Unknown Analyte Normal = Negati ve Not Available [address] [place], [address], 03/04/2024 08:44:59 03/04/20 24 03/04/2024 urina lysis , dipst ick Unknown Analyte Negati ve Not Available [address] [place], [address], 03/04/2024 08:44:59 Result Notes None recorded. Problems Name Problem SNOMED Code Status Onset Date Resolution Date Notes Provider Name and Address Organization Details Recorded Time Attention deficit hyperactivity disorder [id number] Active 2022 Liliane florian PA - [facility] 13:42:46 Problem Notes None recorded. Procedures Surgical History Date Name Laterality Status Provider Name and Address Organization Details Recorded Time 05/28/20 23 OC- Physical completed Josselyn Daugherty PA - [facility] 05/28/2023 09:50:38 cholecystectomy completed KADEN CRANDALL PA - [facility] 08/07/2023 11:45:08 Imaging Results None recorded. Procedure Notes None recorded. Medical Equipment None Reported. Allergies No known drug allergies Medications Name Sig Start Date Stop Date Status Note LastModified by Organization Details LastModified Time fluconazole 150 mg tablet Take 1 tablet by oral route as directed for 1 day. 03/04 completed Not Available Not Available Not Available Metrogel Vaginal 0.75 % (37.5 mg/5 gram) Insert 1 applicato rful every day by vaginal route for 5 days. 06/10 completed Not Available Not Available Not Available Polytrim 10,000 unit-1 mg/mL eye drops INSTILL 1 DROP INTO AFFECTED EYE(S) BY OPHTHALMI C ROUTE EVERY 6 HOURS 08/07 completed Not Available Not Available Not Available nitrofurant oin monohydrate /macrocryst als 100 mg capsule TAKE 1 CAPSULE BY MOUTH TWICE A DAY FOR 5 DAYS 03/04 completed Not Available Not Available Not Available multivitami n 03/04 completed Not Available Not Available Not Available Estarylla 0.25 mg-35 mcg tablet TAKE 1 TABLET BY MOUTH DAILY 03/04 completed Not Available Not Available Not Available Vienva 0.1 mg-20 mcg tablet TAKE 1 TABLET BY MOUTH EVERY DAY active Not Available Not Available No t Available Vitals Date Recorded Body height Body mass index (BMI) Body weight Pain severity - 0-10 verbal numeric rating [Score] - Reported Respiratory rate Oxygen saturation Oxygen saturation in Arterial blood by Pulse oximetry Heart rate Body temperature Systolic blood pressure Diastolic blood pressure Provider Name and Address Organization Details Last Updated DateTime 3 167.64 cm 23.4 kg/m2 31827.8 9 g 0 18 /min 100 % 100 % 62 /min 98 [degF] 114 mm[Hg] 76 mm[Hg] Liliane TAMAYO - [facility] 3 13:44:17 Date Recorded Body height Body mass index (BMI) Body weight Respiratory rate Body temperature Heart rate Oxygen saturation Oxygen saturation in Arterial blood by Pulse oximetry Systolic blood pressure Diastolic blood pressure Provider Name and Address Organization Details Last Updated DateTime 3 167.64 cm 23.4 kg/m2 74675.8 9 g 16 /min 96.9 [degF] 63 /min 100 % 100 % 114 mm[Hg] 72 mm[Hg] Caitlyn Man PA - [facility] 3 08:52:48 Date Recorded Body height Body mass index (BMI) Body weight Pain severity - 0-10 verbal numeric rating [Score] - Reported Respiratory rate Oxygen saturation Oxygen saturation in Arterial blood by Pulse oximetry Heart rate Body temperature Systolic blood pressure Diastolic blood pressure Provider Name and Address Organization Details Last Updated DateTime 3 167.64 cm 23.4 kg/m2 50571.8 9 g 0 17 /min 100 % 100 % 60 /min 98.7 [degF] 95 mm[Hg] 60 mm[Hg] KADEN MOJICA RA PA - [facility] 3 11:46:39 Date Recorded Body height Body weight Oxygen saturation Oxygen saturation in Arterial blood by Pulse oximetry Pain severity - 0-10 verbal numeric rating [Score] - Reported Heart rate Respiratory rate Body temperature Body mass index (BMI) Systolic blood pressure Diastolic blood pressure Provider Name and Address Organization Details Last Updated DateTime 4 167.64 cm 41983.9 6 g 98 % 98 % 7 89 /min 18 /min 97.1 [degF] 26.1 kg/m2 115 mm[Hg] 74 mm[Hg] Daniela Delvalle PA - [facility] 4 08:42:55 Social History Question Answer Notes LastModified by Organizat ion Details LastModified Time Tobacco Smoking Status Never Smoker Liliane florian PA - [facility] 04/02/2023 13:42:54 What Is Your Level Of Alcohol Consumption? Moderate [email or web address] Information not available 03/04/2024 Which Illicit Or Recreational Drugs Have You Used? [place] [email or web address] Information not available 03/04/2024 Have You Had A Flu Shot This Season? Yes [email or web address] Information not available 03/04/2024 Have You Had Direct Contact, Or Contact During Intimacy, With Monkeypox Rash, Scabs, Or Body Fluids From A Person With Monkeypox? No Information not available 04/02/2023 What Was The Date Of Your Most Recent Tobacco Screening? 03/04/2024 [email or web address] Information not available 03/04/2024 Do You Use Any Illicit Or Recreational Drugs? Yes [email or web address] Information not available 03/04/2024 Have You Recently Traveled Abroad? No Information not available 04/02/2023 Do You Or Have You Ever Used Any Other Forms Of Tobacco Or Nicotine? No Information not available 04/02/2023 Sex: Unknown Functional Status None recorded. Mental Status None recorded. Family History Relationship Description Onset Age of this Age Resolved Age Notes LastModified by Organization Details LastModified Time Father No current problems or disability Not available 04/02 13:42:47 Mother No current problems or disability Not available 04/02 13:42:47 Medical History No medical history recorded. Gynecological History Statement/Question Response Date of LMP 02/19/2024 Is there any chance of ? Unsure LMP Approximate Obstetrics History GPAL:G 0 P 0 0 0 0 Past Encounters Encounter ID Performer Location Encounter Start Date Encounter Closed Date Diagnosis/Indication Diagnosis SNOMED-CT Code Diagnosis ICD10 Code Diagnosis Note [id number] [address] [facility] [address] [place] [address] 10/09/2019 11:55:37 10/09/2019 12:45:03 [id number] [address] [place] [address] 09/24/2022 12:58:24 09/24/2022 13:13:36 [id number] [address] [place] [address] 03/30/2021 08:39:52 03/30/2021 09:05:13 [id number] John Burrell MD [address] [place] [address] 04/02/2023 13:22:28 04/02/2023 14:25:04 Acute vaginitis 83156571 N76.0 Please follow up with PCP or Urgent Care in 3-5 days if no improvemen t or if any new symptoms occur that are concerning .Call 911 or go to nearest ER if you develop any shortness of breath, chest pain, severe headache, dizziness, or other concerning symptoms [id number] RONI BROOKS [address] [facility] [address] [place] [address] 05/28/2023 09:05:42 05/28/2023 10:52:09 History and physical examination, pre-employment 967891913 Z02.1 Healthy Well Developed female - no medical contraindi cations for employment Patient has job with [employer]. [id number] Megan Rodriguez MD [address] [facility] [address] [place] [address] 06/10/2023 08:17:31 06/10/2023 10:43:21 Acute conjunctivitis of bilateral eyes [id number] 42471 H10.33 [id number] [place] [address] [facility] [address] [place] [address] 08/07/2023 10:45:59 08/07/2023 12:12:33 Vaginitis 45115753 N76.0 Dysuria 86148693 R30.0 You are going to be treated for a Urinary Tract Infection. The following are recommenda tions to help with your symptoms and recovery:1 . Drink Plenty of fluids - Stay hydrated2. Finish full antibiotic course3. I recommend starting a Probiotic - I recommend Florastor4 . If you take Azo - this will help the burning and urgency feeling - just be aware it will turn your urine bright yellow. I would not hesitate to be seen again if you develop:1. Severe Back Pain2. Abdominal Pain3. Nausea and Vomiting4. Vaginal Discharge or Bleeding5. Fever > 101.0 You symptoms should improve within 72 hours for a typically UTI. If a urine culture was sent out to the lab for you we should get the results back within 4 days. This will be able to prove that your symptoms are caused by a UTI and it will also verify that the correct antibiotic was prescribed . Thank you for using [facility] - please don't hesistate to call our office if you have any questions or concerns. [id number] MAEVE WORTHINGTON [place] [address] [facility] [address] [place] [address] 03/04/2024 08:21:41 03/04/2024 09:17:01 Lower abdominal pain 08095168 R10.30 Exposure t o sexually transmissible disorder [id number] Z20.2 Health Concerns Section Related Observation LastModified by Organization Detai ls LastModified Time None Recorded Concern Status LastModified by Organization Details LastModified Time None Recorded Advance Directives Directive None Recorded Payers Encounter Date Sequence Insurance Name Policy Number Policy Corbin Covered Member ID Corbin Member ID Guarantor Name 04/02/2023 1 [facility] ([facility] [id number] Agustínkristashan Ingrid 05/28/2023 OC-PAY AT TIME OF SERVICE 2022 Jean Quintero PAY AT TIME OF SERVICE Jean Quintero 06/10/2023 1 [facility] (MEDICAID HMO) JENNY Quintero [id number] Jean Quintero 08/07/2023 1 [facility] (MEDICAID HMO) [facility] [id number] Jean Quintero 03/04/2024 1 [facility] (MEDICAID HMO) JENNY Quintero [id number] Jean Quintero Notes Date Note Type Note Provider Name and Address Organization Details Recorded Time 3 text/html Urinary / Dental Practitioner Problems-FemaleReported bypatient.Location:vaginal Context:sexually active;1 partners in last year;prior history of STDs;unprotected intercourse Associated Symptoms:no flank pain; no jaundice; no blood in the urine; no pain during urination;clear vaginal discharge; odor John Burrell MD [address] [place], [place] [address], [address], PA - [facility] 04/02/2023 14:26:52 3 text/html Eye problemsReported bypatient.source of patient informationInformation obtained from patient; Patient arrived at Urgent Care ambulatory Location:bilateral Eye Symptoms:no sensitivity to light; no discharge of pus from the eyes; no pain in the eyes; no blurred vision;redness;itching Severity:moderate Onset/Timinweeks Context:No eye trauma, chemical exposure, foreign body sensation or contact lens use. Tried contacts 2 weeks ago once and could not tolerate. Modifying Factors:nothing gives relief; not seeing eye doctor yearlyNotes:22 year old female presenting for evaluation of bilateral eye redness, itching and irritation for one week. She has been using OTC allergy eye drops without improvement. No blurry vision, foreign body sensation, chemical exposure, eye trauma. She tried contact lenses once 2 weeks ago but could not tolerate them. No fever, chills, runny nose, cough or other systemic symptoms. Megan Rodriguez MD [address] [place], [address], [facility] 06/10/2023 10:43:34 3 text/html Urinary / Dental Practitioner Problems-FemaleReported bypatient.source of patient informationInformation obtained from patient; Patient arrived at Urgent Care ambulatory Location:vaginal; suprapubic Severity:moderate Onset/Timing:gradual Context:sexually active;1 partners in last year;unprotected intercourse Modifying Factors:nothing gives relief Associated Symptoms:no flank pain; no blood in the urine Monica Stanford NP [address] [place], [address], [facility] 08/07/2023 13:15:00 4 text/html 23 yo female presents with 1 week hx of left side abdominal pain. Afebrile. Mild nausea, no vomiting, diarrhea, constipation, headache, vaginal d/c, or back pain. She also states she may have been exposed to an STI and would like to be checked. MAEVE WORTHINGTON MD [address] [place], [address], [facility] 03/04/2024 09:14:20 OBGyn Episode No OBEpisode recorded.
--- OUTSIDE RECORDS SUMMARY | 2025-01-20 16:51 | XMS_ITS | Encounter Summary ---
Author Organization [facility] Address [address] [place] [address] Phone Care Team Providers Care Oncology Physician Name Role Phone Nicole Thomas MD Primary Care Provider + [phone] Reason for Visit * Reason Comments Med Refill Encounter Details Date Type Department Care Team (Late st Contact Info) Description 12/24/2021 Refill [facility] - [place] [address] [place] [address] Shwetha Hager NP [address] [place] [address] Encounter for surveillance of contraceptive pills Social History Tobacco Use Types Packs/Day Years [...] as of this encounter Visit Diagnoses Diagnosis Encounter for surveillance of contraceptive pills documented in this encounter Care Teams Oncology Physician Relationship Specialty Start Date End Date Nicole Thomas MD [address] [place] [address] PCP - General Pediatrics 02/24/20 10/28/23 documented as of this encounter
--- OUTSIDE RECORDS SUMMARY | 2025-01-20 16:51 | XMS_ITS | Encounter Summary ---
Author Organization [facility] Address [address] [place] [address] Phone Care Team Providers Care Vehicle Calibration Engineer Name Role Phone Nicole Thomas MD Primary Care Provider + [phone] Encounter Details Date Type Department Care Team (Late st Contact Info) Description 08/21/2022 Orders Only [facility] - [place] [address] [place] [address] Ashley Black NP Encounter for surveillance of contraceptive pills (Primary Dx) Social History Tobacco Use Types Packs/Day Years Used Date Smoking Tobacco: Never Smokeless Tobacco: Never Alcohol Use Standard Drinks/Week Comments No 0 (1 standard drink = 0.6 oz pur e alcohol) Hunger/Food Answer Date Recorded In the last 12 months, did y ou or your family ever eat less than you felt you should because there wasn't enough money for food? No 08/16/2022 Stable Housing Answer Date Recorded Are you worried that in the next 2 months you may not have stable housing? No 08/16/2022 Transportation Concerns Answer Date Rec orded In the last 12 months, have you or your family ever had to go without healthcare because you didn't have a way to get there? No 08/16/2022 Hazards in Home Answer Date Recorded Think about the place you li ve. Do you have problems with any of the following? Pests (mice or roaches), mold, no/not working smoke detectors, water leaks, no window guards. No 2021 Financing Utilities Answer Date Recorde d In the last 12 months, has t he electric, gas, oil, or water company threatened to shut off your services in your home? No 08/16/2022 Safety at Home Answer Date Recorded Are you or your family worried about feeling saf e in your home? No 08/16/2022 Outside Support Answer Date Recorded Do you feel that you need mo re support from other people or programs to help you care for yourself or your family? No 08/16/2022 Understanding Health Concerns Answer Da te Recorded Do you need help understandi ng your or your child's healthcare needs (diagnosis, medications, plan, etc.)? No 08/16/2022 Financing Health Concerns Answer Date R ecorded In the last 12 months, was t here a time when your child needed to see a doctor or get medications or supplies but could not because of cost? No 08/16/2022 Missing School or Work Answer Date Javon rded Did you or your child miss s chool or work because of a health problem that could have been avoided? No 08/16/2022 Comments No Sex and Gender Information Value Date Recorded Sex Assigned at Female 08/16/2022 10:07 AM EDT Legal Sex Female 3:18 PM EDT Gender Identity Female 03/26/2021 2:29 PM EDT Sexual Orientation Straight 08/16/2022 10 :08 AM EDT documented as of this encounter Plan of Treatment Not on file documented as of this encounter Visit Diagnoses Diagnosis Encounter for surveillance of contraceptive pills- Primary documented in this encounter Care Teams Vehicle Calibration Engineer Relationship Specialty Start Date End Date Nicole Thomas MD [address] [place] [address] PCP - General Pediatrics 02/24/20 10/28/23 documented as of this encounter
--- OUTSIDE RECORDS SUMMARY | 2025-01-20 16:51 | XMS_ITS | Encounter Summary ---
Author Organization [facility] Address [address] [place] [address] Phone Care Team Providers Care Cps Team Lead Name Role Phone Nicole Thomas MD Primary Care Provider [phone] Reason for Visit * Reason Onset Date Comments Med Refill 04/10/2020 Encounter Details Date Type Department Care Team (Late st Contact Info) Description 04/10/2020 Refill [facility] - [place] [address] [place] [address] Caitlyn Portillo LPN [address] [place] [address] Encounter for surveillance of contraceptive pills Social [...] could have been avoided? No 04/13/2020 Comments Unknown Sex and Gender Information Value Date Recorded Sex Assigned at Female 08/16/2022 10:07 AM EDT Legal Sex Female 3:18 PM EDT Gender Identity Female 03/26/2021 2:29 PM EDT Sexual Orientation Straight 08/16/2022 10 :08 AM EDT documented as of this encounter Miscellaneous Notes * Telephone Encounter - An Ferguson - 04/11/2020 5:59 PM EDT Patient scheduled 04/13 with KD * Telephone Encounter - Caitlyn Portillo LPN - 04/10/2020 12:32 PM EDT Refill requested for Alissia???s: OCP- Apri 0.15-30 mcg Refill request source: Phone call-- patient This medication was last refilled on 04/26/2019 An office visit is recommended. To be forwarded to provider for review. Pt due for med check [id number] - [place], [place] - [address] [place] [address] AT [facility] [address] [facility] [phone] PCP: Nicole Thomas MD documented in this encounter Plan of Treatment Not on file documented as of this encounter Visit Diagnoses Diagnosis Encounter for surveillance of contraceptive pills documented in this encounter Care Teams Cps Team Lead Relationship Specialty Start Date End Date Nicole Thomas MD [address] [place] [address] PCP - General Pediatrics 02/24/20 10/28/23 documented as of this encounter
--- OUTSIDE RECORDS SUMMARY | 2025-01-20 16:51 | XMS_ITS | Encounter Summary ---
Author Organization [facility] Address [address] [place] [address] Phone Care Team Providers Care Pharmacy Technician Assistant Name Role Phone Nicole Thomas MD Primary Care Provider + [phone] Reason for Visit * Reason Comments Med Refill Encounter Details Date Type Department Care Team (Late st Contact Info) Description 06/22/2021 Refill [facility] - [place] [address] [place] [address] Lydia Gilmore MD [address] [place] [address] Dysthymia; Anxiety Social History Tobacco Use Types [...] unspecified documented in this encounter Care Teams Pharmacy Technician Assistant Relationship Specialty Start Date End Date Nicole Thomas MD [address] [place] [address] PCP - General Pediatrics 02/24/20 10/28/23 documented as of this encounter
--- OUTSIDE RECORDS SUMMARY | 2025-01-20 16:51 | XMS_ITS | Clinical Summary ---
Author Organization [facility] Address [address] [place] [address] Phone Care Team Providers Care Railroad Brakeman Name Role Phone Unavailable Primary Care Provider Unavailabl e Allergies No known active allergies Medications Multiple Vitamins-Minerals (MULTIVITAMIN ADULT) tabletIndications: Well adult exam Take 1 tablet by mouth daily. 100 tablet 3 8 Active albuterol HFA 108 (90 Base) MCG/ACT inhalerIndications :History of asthma Inhale 2 puffs every 4 (four) hours as needed for wheezing. 1 Units 2 Active sertraline 25 MG tabletIndications: Dysthymia,Anxiety TAKE 1 TABLET(25 MG) BY MOUTH DAILY 30 tablet 2 Active lisdexamfetamine (Vyvanse) 20 MG capsuleIndications :Attention deficit disorder with hyperactivity Take 1 capsule (20 mg total) by mouth every morning. 30 capsule 2 Active levonorgestrel-eth inyl estradiol (Aviane) 0.1-20 MG-MCG per tabletIndications: Encounter for surveillance of contraceptive pills Take 1 tablet by mouth daily. 28 tablet 2 2 Active Active Problems Problem Noted Date Diagnosed Date Weight loss 08/16/2022 Overview (08/16/2022): 30 lbs weight loss over the last year after losing father 03/2021 and stepfather in 2021, no restriction, is eating healthier and started exercising Assessment & Plan (08/16/2022 10:06 AM EDT): Weight loss, likely due to stress, no restriction, will continue to monitor Concussion with no loss of consciousness 022 Assessment & Plan (08/16/2022 10:02 AM EDT): Symptoms have resolved, no concerns today Assessment & Plan (07/12/2022 10:39 AM EDT): Seen for follow up, 4 weeks. Still with headaches 2-3 times weekly. Some persistent fatigue, although improved over past couple weeks. Reports improvement in cognition and dizziness/balance issues. Exam wnl. Will be starting PT this week. Discussed follow up in 1-2 weeks. If no improvement, would recommend referral to Sports medicine concussion clinic at [facility]. Chlamydia infection 03/23/2018 Overview (08/19/2022): 08/16/22 positive. History of asthma 03/12/2018 Overview (08/16/2022): Heat / humidity is a trigger. Prn albuterol Assessment & Plan (08/16/2022 10:01 AM EDT): Needed alubuterol in the summer, has not needed in 2 weeks, no need for controller at this time Assessment & Plan (04/13/2020 4:24 PM EDT): No longer using albuterol. Does feel some tightness with cold air or exercise. Is interested in restarting. Encounter for surveillance of contraceptive pill s 03/12/2018 Assessment & Plan (08/16/2022 10:02 AM EDT): Doing well on current OCP, 1 male partner x 7 years Other acne 03/12/2018 Assessment & Plan (08/16/2022 10:01 AM EDT): No concerns today Acanthosis nigricans 03/12/2018 Status post normal childbirth 01/08/2018 Overview (03/12/2018): Group B strep, hx substance use, teen mom. Assessment & Plan (08/16/2022 10:00 AM EDT): Daughter is 4.6 y old, lives at home with grandparents, sister, boyfriend and daughter Anxiety 10/13/2017 Overview (08/16/2022): Overview: Intermittent, situational. No therapy or Rx. Feeling excited and happy in . 08/2018: MB form from [facility], clinician is Flor Jansen. DX: Generalized anxiety disorder. 03/2021: Doing very well on sertraline 25 mg, OANH went from 17 down to 1, with this and Vyvanse. Had been on higher doses sertraline in past and was depressed. 12/2021 - Sertraline 25 mg 08/16/22 - has been off Sertraline x 3+ months, feels in a good mental headspace, lost father March 2021 and stepfather 05/2022, has grief support Assessment & Plan (08/16/2022 10:04 AM EDT): Is currently doing well, has family support, feels is doing well without medication Assessment & Plan (12/27/2021 8:24 PM EST): Significant improvement on sertraline 25mg. GAD7 = 1. Would like to continue, feels it is a good support. Recheck in 3 months with [facility]. Assessment & Plan (08/17/2021 9:10 AM EDT): GAD7=9 today, increased since being off sertraline. Will restart today, recheck in 3 months. Assessment & Plan (02/22/2021 9:47 AM EDT): OANH-7 = 17, responded well to sertraline in the past. Will restart 25 mg, recheck in 3-4 weeks. ASQ = 0. Assessment & Plan (04/13/2020 4:47 PM EDT): Doing well on sertraline 25 mg, will continue. Recheck in 3 months. Attention deficit disorder with hyperactivity Overview (03/26/2021): On Vyvanse in past per record from [facility]. 03/2021: Doing very well on Vyvanse 20 mg. Assessment & Plan (08/16/2022 10:03 AM EDT): Occasionally takes Vyvanse if is very distractible, uses about 1-2 x per week Assessment & Plan (12/27/2021 8:24 PM EST): Continues to respond well to Vyvanse at current dose. Recheck in 3 months. Assessment & Plan (08/17/2021 9:10 AM EDT): Doing well on Vyvanse, will continue. 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 Will restart Vyvanse 20 mg, recheck in 3-4 weeks. Assessment & Plan (04/13/2020 4:46 PM EDT): No current medication, doing well with control of emotional concerns Resolved Problems Problem Noted Date Diagnosed Date Resolved Date Dysthymia 05/28/2019 03/26/2021 Overview (03/26/2021): Currently on 50mg sertraline. Increased from 25mg on 05/28/19. Next med recheck June 02, 201903/2021: Resolved on lower dose of sertraline and also treating adhd. Assessment & Plan (04/13/2020 4:47 PM EDT): Doing well on sertraline 25 mg, will continue. Recheck in 3 months. Immunizations Immunization Administration Dates Next Due DTaP 02/28/2004, 1,02/29/2000,01/10,1999 HPV 11/01/2013,08/26/2013,09/30/2011 Hep A, Adult 12/27/2021,04/13/2020 Hep B, ped/adol 07/18/2000,02/29/2000,1999 HiB 01/28/2001, 0,01/10/2000,10/29 IPV 02/28/2004, 1,01/10/2000,10/29 Influenza 10/01/2017,08/26/2014 Influenza, injectable, quadrivalent 09/23/2007 Influenza, injectable, quadr ivalent, preservative free 12/27/2021,03/01/2019 MMR 02/28/2004,01/28/2001 Meningococcal Conj (Menactra) MCV4P 03/19/2018,1 PPD Test 07/16/2022, 9,07/21/2019,06/02 Pneumococcal Conjugate 04/01/2001,01/28/2001 Tdap 01/10/2018,09/30/2011 Varicella 09/30/2011,01/28/2001 Social History Tobacco Use Types Packs/Day Years [...] Orientation Straight 08/16/2022 10 :08 AM EDT Last Filed Vital Signs Vital Sign Reading Time Taken Comments Blood Pressure 105/62 08/16/2022 8:33 AM EDT Pulse 66 08/16/2022 8:33 AM EDT Temperature 36.6 ??C (97.9 ??F) 06/26/2022 1:34 PM ED T Respiratory Rate - - Oxygen Saturation 99% 06/26/2022 1:34 PM EDT Inhaled Oxygen Concentration - - Weight 61.8 kg (136 lb 3.2 oz) 08/16/2022 8:33 A M EDT Height 169.6 cm (5' 6.76 ) 08/16/2022 8:33 AM ED T Body Mass Index 21.49 08/16/2022 8:33 AM EDT Plan of Treatment Health Maintenance Due Date Last Done Comments HIV Screening 1999 Syphilis Screening (consider for higher risk patients) 1999 Influenza Vaccines (#1) 2024 12/27/19 22, 03/01/2019, 10/01/2017, Additional history exists COVID-19 Vaccine ( season) 2024 07/25/2021, 07/04/2021 DTaP,Tdap,and Td Vaccines (8 - Td or Tdap) 01/10/2028 01/10/2018, 09/30/2011, 02/28/2004, Additional history exists Hepatitis B Vaccines Completed 07/18/2000, 02/29/2000, 1999 HIB Vaccines Completed 01/28/2001, 01/31, 01/10/2000, Additional history exists Pneumococcal Vaccine Completed 04/01/2001, 01/28/20 IPV Vaccines Completed 02/28/2004, 03/2001, 01/10/2000, Additional history exists MMR Vaccines Completed 02/28/2004, 01/28/2001 Varicella Vaccines Completed 09/30/2011, 01/28/2001 HPV Vaccines Completed 11/01/2013, 08/02, 09/30/2011 Meningococcal Vaccine Completed 03/19/2018, 011 Hepatitis A Vaccines Completed 12/27/2021, 04/13/20 Men B Vaccine Aged Out No longer elig ible based on patient's age to complete this topic Procedures * Due to [place] law, this organization might not be sharing sensitive test results. Procedure Name Priority Date/Time Associated Diagnosis Comments CHLAMYDIA AND GONORRHEA, AMPLIFIED Routine 08/16/2022 9:20 AM EDT Encounter for screening examination for sexually transmitted disease from Last 3 Months or Most Recently Relevant to Health Maintenance Results * Due to [place] law, this organization might not be sharing sensitive test results. * (ABNORMAL) Chlamydia and Gonorrhoea, Amplified (Urine) (08/16/2022 9:20 AM EDT) Chlamydia trachomatis RNA, TMA Detected(A) Not Detected 08/19/2022 11:47 AM EDT [facility] Neisseria gonorrhoeae, VALERIY Not Detected Not Detected 08/19/2022 11:47 AM EDT [facility] Specimen Type URINE 08/19/2022 11:47 AM EDT [facility] Urine (Urine, Random (not clean void)) 08/16/2022 9:20 AM EDT 08/16/2022 3:49 PM EDT us Ashley Black NP LAB MICROBIOLOGY - GENERAL OR DERABLES Final Result [facility] from Last 3 Months or Most Recently Relevant to Health Maintenance
--- OUTSIDE RECORDS SUMMARY | 2025-01-20 16:51 | XMS_ITS | Encounter Summary ---
Author Organization [facility] Address [address] [place] [address] Phone Care Team Providers Care Customer Success Associate Name Role Phone Nicole Thomas MD Primary Care Provider [phone] Reason for Visit * Reason Onset Date Comments Med Refill 03/26/2021 Encounter Details Date Type Department Care Team (Late st Contact Info) Description 03/26/2021 Refill [facility] - [place] [address] [place] [address] Caitlyn Portillo LPN [address] [place] [address] Attention deficit disorder with hyperactivity Social History Tobacco Use Types Packs/Day Years [...] encounter Miscellaneous Notes * Telephone Encounter - Caitlyn Portillo LPN - 03/26/2021 9:17 AM EDT Refill requested for Alissia???s: Vyvanse 20mg Refill request source: Phone call-- parent/guardian This medication was last refilled on 02/22/21. An office visit is not recommended. To be forwarded to provider for review. [id number] - [place], [place] - [address] [facility] [address] [id number] PCP: Nicole Thomas MD documented in this encounter Plan of Treatment Not on file documented as of this encounter Visit Diagnoses Diagnosis Attention deficit disorder with hyperactivity documented in this encounter Care Teams Customer Success Associate Relationship Specialty Start Date End Date Nicole Thomas MD [address] [place] [id number] PCP - General Pediatrics 02/24/20 10/28/23 documented as of this encounter
--- OUTSIDE RECORDS SUMMARY | 2025-01-20 16:51 | XMS_ITS | Encounter Summary ---
Author Organization [facility] Address [address] [place] [address] Phone Care Team Providers Care Carburetor Expert Name Role Phone Nicole Thomas MD Primary Care Provider [phone] Reason for Visit * Reason Comments Med Refill Encounter Details Date Type Department Care Team (Late st Contact Info) Description 04/02/2022 Refill [facility] Pediatrics - [place] [address] [place] [address] Nicole Thomas MD [address] [place] [address] History of asthma Social History Tobacco Use [...] system documented in this encounter Care Teams Carburetor Expert Relationship Specialty Start Date End Date Nicole Thomas MD [address] [place] [phone] PCP - General Pediatrics 02/24/20 10/28/23 documented as of this encounter
--- OUTSIDE RECORDS SUMMARY | 2025-01-20 16:51 | XMS_ITS | Encounter Summary ---
Author Organization [facility] Address [address] [place] [address] Phone Care Team Providers Care Regional Facilities Specialist Name Role Phone Nicole Thomas MD Primary Care Provider [phone] Reason for Visit * Reason Comments Med Refill Encounter Details Date Type Department Care Team (Late st Contact Info) Description 11/13/2021 Refill [facility] Pediatrics - [place] [address] [place] [address] Nicole Thomas MD [address] [place] [address] Dysthymia; Anxiety Social History Tobacco Use Types [...] documented in this encounter Care Teams Regional Facilities Specialist Relationship Specialty Start Date End Date Nicole Thomas MD [address] [place] [phone] PCP - General Pediatrics 02/24/20 10/28/23 documented as of this encounter
== END 2025-01-20 19:38 | disposition left against medical advice (07) ==
PROVIDERS: Emergency Provider Emergency Medicine
DX: R10.2 Pelvic and perineal pain (principal)

== ENCOUNTER → 2025-02-10 10:51 | Outpatient (BNVA) | payer SELFPAY | PROVIDERS: Visit Provider Physician Assistant Medical | DX: Z02.1 Encounter for pre-employment examination (principal) ==